=== PATIENT | female | born 1955 | race Caucasian/White ===

== ENCOUNTER → 2017-12-11 10:31 | Outpatient (CLI) | payer OTHER, SELFPAY ==
[2017-12-11 12:06] LABS: Absolute Lymphocyte Count 1.82 X10^3/ul (0.83-4.51); Absolute Neutrophil Count 4.5 X10^3/uL (2.0-7.7); Basophil# 0.02 X10^3/uL; Basophil% 0.3 % (0-1); Eosinophil# 0.09 X10^3/uL; Eosinophils% 1.3 % (0-5); Hematocrit 42.7 % (37-47); Hemoglobin 13.7 g/dl (12.0-15.0); Lymphocyte # 1.82 X10^3/ul (4.0); Lymphocyte % 25.9 % (19-41); Mean Corp Hgb Conc 32.1 g/gl (32-36); Mean Corpuscular Hgb 29.4 pg (27.0-32.0); Mean Corpuscular Volume 91.6 fL (81-99); Mean Platelet Vol. 10.8 fl (6.2-12.0); Monocyte# 0.62 X10^3/uL; Monocyte% 8.8 % (0-10); Neutrophil # 4.48 X10^3/uL (2.7-7.7); Neutrophil % 63.6 % (47-70); Platelet Count 213 K/mm3 (150-450); RBC Distribution Width CV 13.3 % (11.6-14.6); RBC Distribution Width SD 43.9 fl (35.1-43.9); Red Blood Count 4.66 M/mm3 (4.2-5.4)
[2017-12-11 12:20] LABS: POSITIVE COUNT NO; POSITIVE DIFFERENTIAL NO; POSITIVE MORPHOLOGY NO
[2017-12-11 12:40] LABS: Anion Gap 4 (5-15); BUN 19 mg/dL (7-18); BUN/Creat Ratio 23.1 RATIO (10-20); Calcium,Total 9.4 mg/dL (8.5-10.1); Chloride 105 mmol/L (98-107); Creatinine, Serum 0.82 mg/dL (0.55-1.02); EST Glomerular Filtration Rate 75 mL/min (>60); Est Glom Filt Rate - Afr Amer 90 mL/min (>60); Glucose 91 mg/dL (74-106); Sodium Level 142 mmol/L (136-145); T4 Free Direct 1.12 ng/dL (0.76-1.46); Thyroid Stim Hormone (TSH) 0.75 uIU/mL (0.358-3.74)
== END ==
PROVIDERS: Family Provider Family Medicine; PCP Family Medicine; Visit Provider Family Medicine
DX: I10 Essential (primary) hypertension (principal); R19.7 Diarrhea, unspecified; R35.0 Frequency of micturition
CPT/HCPCS: 36415; 80048; 84439; 84443; 85025

== ENCOUNTER → 2018-04-02 08:05 | Outpatient (CLI) | payer OTHER, SELFPAY | PROVIDERS: Family Provider Family Medicine; PCP Family Medicine; Visit Provider Obstetrics & Gynecology | DX: Z12.31 Encounter for screening mammogram for malignant neoplasm of breast (principal) | CPT/HCPCS: 77063; 77067 ==

== ENCOUNTER → 2019-04-01 | Outpatient (CLI) | payer OTHER, SELFPAY ==
[2019-04-01 15:22] LABS: Absolute Lymphocyte Count 1.72 X10^3/uL (0.83-4.51); Absolute Neutrophil Count 4.3 X10^3/uL (2.0-7.7); Basophil# 0.03 X10^3/uL; Basophil% 0.4 % (0-1); Eosinophil# 0.13 X10^3/uL; Eosinophils% 1.9 % (0-5); Hematocrit 42.4 % (37-47); Hemoglobin 13.3 g/dL (12.0-15.0); Lymphocyte # 1.72 X10^3/ul (4.0); Lymphocyte % 25.4 % (19-41); Mean Corp Hgb Conc 31.4 g/dL (32-36); Mean Corpuscular Hgb 29.6 pg (27.0-32.0); Mean Corpuscular Volume 94.2 fL (81-99); Mean Platelet Vol. 10.3 fl (6.2-12.0); Monocyte# 0.62 X10^3/uL; Monocyte% 9.2 % (0-10); NRBC Flagged by Analyzer 0 % (0-5); Neutrophil # 4.25 X10^3/uL (2.7-7.7); Platelet Count 270 K/mm3 (150-450); RBC Distribution Width SD 45.2 fl (35.1-43.9); White Blood Count 6.8 K/mm3 (4.4-11.0)
[2019-04-01 15:42] LABS: Anion Gap 3 (5-15); BUN 18 mg/dL (7-18); BUN/Creat Ratio 20.5 RATIO (10-20); Calcium,Total 9.6 mg/dL (8.5-10.1); Chloride 107 mmol/L (98-107); Creatinine, Serum 0.88 mg/dL (0.55-1.02); EST Glomerular Filtration Rate 69 mL/min (>60); Est Glom Filt Rate - Afr Amer 83 mL/min (>60); Glucose 92 mg/dL (74-106); Potassium 4.4 mmol/L (3.5-5.1); Sodium Level 142 mmol/L (136-145); Thyroid Stim Hormone (TSH) 0.86 uIU/mL (0.358-3.74)
== END | disposition home or self-care (01) ==
LOC: BFHLAB 11:12
PROVIDERS: Family Provider Family Medicine; PCP Family Medicine; Visit Provider Family Medicine
DX: I10 Essential (primary) hypertension (principal)
CPT/HCPCS: 36415; 80048; 84443; 85025

== ENCOUNTER → 2019-04-22 | Outpatient (CLI) | payer OTHER, SELFPAY ==
--- NOTE | 2019-04-22 07:56 | BI_ITS ---
MAMMOGRAPHY - BILATERAL SCREENING REASON FOR EXAM: Female, 64 years old. Routine annual screening examination. PERTINENT HISTORY: Non-contributory. TECHNIQUE: Digital bilateral breast waleska (3D mammographic acquisition) in the CC and MLO projections. 2-D mediolateral oblique (MLO) and craniocaudad (CC) views of both breasts were obtained. CAD: Full Field Digital Mammography with Computer Added Detection was performed. COMPARISON: Comparison is made with prior study April 02, 2018 and October 31, 2016. FINDINGS: Breast Composition: There are scattered areas of fibroglandular density. There are no dominant masses or suspicious calcifications. Stable appearance of the benign-appearing bilateral axillary lymph nodes. No other significant abnormalities are identified. There has been no significant change since the prior study. BI/SCREEN MAMM (CAD) W/WALESKA BILAT IMPRESSION: Stable bilateral screening mammogram. Yearly follow-up mammogram recommended. (A) ASSESSMENT CATEGORY: BIRADS Category 2: Benign. A letter regarding these results will be sent to the patient by the facility within 30 days. Approximately 10% of breast cancers are not detected by mammography. A normal mammogram should not delay biopsy of a clinically suspicious abnormality. [id number] Electronically Signed: Nestor Guillen, at 10:38 EDT , Service support ,
== END | disposition home or self-care (01) ==
PROVIDERS: Family Provider Family Medicine; PCP Family Medicine; Referring Provider Family Medicine; Visit Provider Family Medicine
DX: Z12.31 Encounter for screening mammogram for malignant neoplasm of breast (principal)
CPT/HCPCS: 77063; 77067

== ENCOUNTER → 2019-10-28 10:27 | Outpatient (CLI) | payer OTHER, SELFPAY ==
[2019-10-28 13:19] LABS: Anion Gap 4 (5-15); BUN 19 mg/dL (7-18); BUN/Creat Ratio 21.7 RATIO (10-20); Calcium,Total 9.8 mg/dL (8.5-10.1); Chloride 107 mmol/L (98-107); Creatinine, Serum 0.88 mg/dL (0.55-1.02); EST Glomerular Filtration Rate 69 mL/min (>60); Est Glom Filt Rate - Afr Amer 83 mL/min (>60); Glucose 91 mg/dL (74-106); Potassium 4.1 mmol/L (3.5-5.1); Sodium Level 142 mmol/L (136-145); T4 Free Direct 1.01 ng/dL (0.76-1.46); Thyroid Stim Hormone (TSH) 1.33 uIU/mL (0.358-3.74)
== END ==
PROVIDERS: PCP Family Medicine; Visit Provider Family Medicine
DX: I10 Essential (primary) hypertension (principal); R53.83 Other fatigue
CPT/HCPCS: 36415; 80048; 84439; 84443

== ENCOUNTER → 2020-10-16 09:25 | Outpatient (CLI) | payer MEDICARE, OTHER, SELFPAY ==
[2020-10-16 12:19] LABS: Absolute Lymphocyte Count 1.72 X10^3/uL (0.83-4.51); Absolute Neutrophil Count 4.6 X10^3/uL (2.0-7.7); Basophil# 0.04 X10^3/uL; Basophil% 0.6 % (0-1); Eosinophil# 0.15 X10^3/uL; Eosinophils% 2.1 % (0-5); Hemoglobin 13.2 g/dL (12.0-15.0); Lymphocyte # 1.72 X10^3/ul (4.0); Lymphocyte % 23.9 % (19-41); Mean Corpuscular Hgb 31.9 pg (27.0-32.0); Mean Corpuscular Volume 96.6 fL (81-99); Mean Platelet Vol. 10.9 fl (6.2-12.0); Monocyte# 0.64 X10^3/uL; Monocyte% 8.9 % (0-10); NRBC Flagged by Analyzer 0 % (0-5); Neutrophil # 4.63 X10^3/uL (2.7-7.7); Neutrophil % 64.2 % (47-70); Platelet Count 196 K/mm3 (150-450); RBC Distribution Width CV 13.3 % (11.6-14.6); RBC Distribution Width SD 45.6 fl (35.1-43.9); Red Blood Count 4.14 M/mm3 (4.2-5.4); White Blood Count 7.2 K/mm3 (4.4-11.0)
[2020-10-16 12:35] LABS: Anion Gap 3 (5-15); BUN 20 mg/dL (7-18); BUN/Creat Ratio 22.7 RATIO (10-20); Calcium,Total 9.6 mg/dL (8.5-10.1); Chloride 106 mmol/L (98-107); Cholesterol 223 mg/dL (200); Creatinine, Serum 0.88 mg/dL (0.55-1.02); EST Glomerular Filtration Rate 68 mL/min (>60); Est Glom Filt Rate - Afr Amer 82 mL/min (>60); Glucose 89 mg/dL (74-106); High Density Lipoprotein 68 mg/dL; Potassium 4.2 mmol/L (3.5-5.1); Sodium Level 140 mmol/L (136-145); Triglycerides 79 mg/dL; Very Low Density Lipoprotein 16 mg/dL (5-40)
== END ==
PROVIDERS: PCP Family Medicine; Visit Provider Family Medicine
DX: I10 Essential (primary) hypertension (principal)
CPT/HCPCS: 36415; 80048; 80061; 85025

== ENCOUNTER → 2021-05-24 11:53 | Outpatient (CLI) | payer MEDICARE, OTHER, SELFPAY ==
--- NOTE | 2021-05-24 11:58 | BI_ITS ---
MAMMOGRAPHY - BILATERAL SCREENING REASON FOR EXAM: Female, 66 years old. Routine annual screening examination. PERTINENT HISTORY: Non-contributory. Chronic inversion of the left nipple. TECHNIQUE: Digital bilateral breast w[place]ka (3D mammographic acquisition) in the CC and MLO projections. 2-D mediolateral oblique (MLO) and craniocaudad (CC) views of both breasts were obtained. CAD: Full Field Digital Mammography with Computer Added Detection was performed. COMPARISON: Comparison is made with prior study dated 04/22/2019 and 04/02/2008. FINDINGS: Breast Composition: There are scattered areas of fibroglandular density. There are no dominant masses or suspicious calcifications. Stable small benign appearing bilateral axillary No other significant abnormalities are identified. There has been no significant change since the prior study. BI/SCRN MAMM (CAD)W/WALESKA BILAT IMPRESSION: Stable bilateral screening mammogram. Yearly follow-up mammogram recommended. (A) ASSESSMENT CATEGORY: BIRADS Category 2: Benign. A letter regarding these results will be sent to the patient by the facility within 30 days. Approximately 10% of breast cancers are not detected by mammography. A normal mammogram should not delay biopsy of a clinically suspicious abnormality. [id number] Electronically Signed: Nestor Guillen MD at 13:35 EDT , Service support ,
== END ==
PROVIDERS: PCP Family Medicine; Referring Provider Family Medicine; Visit Provider Family Medicine
DX: Z12.31 Encounter for screening mammogram for malignant neoplasm of breast (principal)
CPT/HCPCS: 77063; 77067

== ENCOUNTER 2021-09-15 10:55 | Outpatient (CLI) | payer MEDICARE, OTHER, SELFPAY ==
--- NOTE | 2021-09-15 11:03 | BD_ITS ---
STUDY: DUAL ENERGY X-RAY ABSORPTIOMETRY / DXA REASON FOR EXAM: Female, 66 years old. M85.89. Patient is postmenopausal. TECHNIQUE: Bone Mineral Density (BMD) measurements of lumbar spine and left hip were obtained. COMPARISON: Comparison is made with prior study to 04/21/2011. FINDINGS: Lumbar Spine (L1-L4): g/cm2 (1.024) / T-score (0.1) / Z-score (1.9) Findings are suggestive of normal bone density with a low fracture risk. Left Femur Total: g/cm2 (0.803) / T-score (-1.1) / Z-score (0.2) Left Femoral Neck: g/cm2 (0.617) / T-score (-2.1) / Z-score (-0.4) The T-Scores on the most recent prior examination were: Lumbar Spine (L1-L4): There has been worsening of bone density since the previous examination. Left Femur Total: which represents a worsening of 9.6%. BD/Dexa Bone Density Study IMPRESSION: The patient is considered osteopenic as outlined below according to World [place] Organization (WHO) criteria with a moderate fracture risk. There has been worsening of bone density since the previous examination. Reference Information: The T-score is the number of standard deviations above or below the standard which is normal for young adults at their peak bone mineral density. The World Health Organization (WHO) interprets the T-scores as follows: Above -1 Normal bone density Between -1 and -2.5 Osteopenia Equal to / or below -2.5 Osteoporosis As a practical clinical guideline, osteopenia may be graded as follows: Mild -1 through -1.5 Moderate -1.6 through -2.0 Severe -2.1 through -2.4 The Z-score is the number of standard deviations above or below age-matched controls. A Z-score of less than -1.5 would be considered abnormal. References: 1. NIH Osteoporosis and Related Bone Diseases www osteo.org 2. International Society for Clinical Densitometry www iscd.org 3. National Osteoporosis Foundation www nof.org Electronically Signed: Nestor Guillen MD at 10:12 EST ,
== END 2021-09-15 23:59 | disposition short-term general hospital (02) ==
PROVIDERS: PCP Family Medicine; Referring Provider Student in an Organized Health Care Education/Training Program; Visit Provider Student in an Organized Health Care Education/Training Program
DX: M85.89 Other specified disorders of bone density and structure, multiple sites (principal)
CPT/HCPCS: 77080

== ENCOUNTER → 2022-09-14 | Outpatient (CLI) | payer MEDICARE, OTHER, SELFPAY ==
[2022-09-14 18:00] LABS: Absolute Lymphocyte Count 1.94 X10^3/uL (0.83-4.51); Absolute Neutrophil Count 4.8 X10^3/uL (2.0-7.7); Basophil# 0.04 X10^3/uL; Basophil% 0.5 % (0-1); Eosinophil# 0.11 X10^3/uL; Eosinophils% 1.5 % (0-5); Hematocrit 40.9 % (37-47); Lymphocyte # 1.94 X10^3/ul (0.83-4.51); Lymphocyte % 25.6 % (19-41); Mean Corp Hgb Conc 31.8 g/dL (32-36); Mean Corpuscular Volume 94.2 fL (81-99); Mean Platelet Vol. 10.9 fl (6.2-12.0); Monocyte# 0.62 X10^3/uL; Monocyte% 8.2 % (0-10); NRBC Flagged by Analyzer 0 % (0-5); Neutrophil # 4.84 X10^3/uL (2.7-7.7); Neutrophil % 63.8 % (47-70); Platelet Count 245 K/mm3 (150-450); Red Blood Count 4.34 M/mm3 (4.2-5.4); White Blood Count 7.6 K/mm3 (4.4-11.0)
[2022-09-14 18:32] LABS: AST(SGOT) 21 U/L (15-37); Alanine Aminotransfer ALT/SGPT 16 U/L (13-56); Albumin, Serum 3.5 g/dL (3.2-5.0); Alkaline Phosphatase 53 U/L (45-117); Anion Gap 8 (5-15); BUN 20 mg/dL (7-18); BUN/Creat Ratio 21.8 RATIO (10-20); Calcium,Total 9.9 mg/dL (8.5-10.1); Chloride 102 mmol/L (98-107); Creatinine, Serum 0.92 mg/dL (0.55-1.02); EST Glomerular Filtration Rate 65 mL/min (>60); Est Glom Filt Rate - Afr Amer 78 mL/min (>60); Globulin 3.4 g/dL (2.2-4.2); Glucose 99 mg/dL (74-106); Potassium 4.1 mmol/L (3.5-5.1); Protein, Total 6.9 g/dL (6.4-8.2); Sodium Level 139 mmol/L (136-145)
[2022-09-14 22:46] LABS: Xtra Tube EP Lab EXTRA TUBE
== END | disposition home or self-care (01) ==
LOC: BFHLAB 14:39
PROVIDERS: PCP Family Medicine; Visit Provider Family Medicine
DX: I10 Essential (primary) hypertension (principal)
CPT/HCPCS: 36415; 80053; 85025

== ENCOUNTER → 2023-02-20 | Outpatient (CLI) | payer MEDICARE, OTHER, SELFPAY ==
[2023-02-20 10:13] LABS: Absolute Lymphocyte Count 1.39 X10^3/uL (0.83-4.51); Basophil# 0.04 X10^3/uL; Basophil% 0.7 % (0-1); Eosinophils% 1.6 % (0-5); Hematocrit 40.2 % (37-47); Hemoglobin 13.2 g/dL (12.0-15.0); Lymphocyte # 1.39 X10^3/ul (0.83-4.51); Lymphocyte % 22.7 % (19-41); Mean Corp Hgb Conc 32.8 g/dL (32-36); Mean Corpuscular Hgb 30.2 pg (27.0-32.0); Mean Platelet Vol. 10.4 fl (6.2-12.0); Monocyte# 0.56 X10^3/uL; Monocyte% 9.2 % (0-10); NRBC Flagged by Analyzer 0 % (0-5); Neutrophil % 65.3 % (47-70); Platelet Count 212 K/mm3 (150-450); RBC Distribution Width CV 12.4 % (11.6-14.6); Red Blood Count 4.37 M/mm3 (4.2-5.4); White Blood Count 6.1 K/mm3 (4.4-11.0)
[2023-02-20 10:52] LABS: AST(SGOT) 25 U/L (15-37); Alanine Aminotransfer ALT/SGPT 21 U/L (13-56); Albumin, Serum 3.5 g/dL (3.2-5.0); Alkaline Phosphatase 58 U/L (45-117); Anion Gap 3 (5-15); BUN 25 mg/dL (7-18); BUN/Creat Ratio 29.7 RATIO (10-20); Calcium,Total 9.5 mg/dL (8.5-10.1); Chloride 105 mmol/L (98-107); Cholesterol 192 mg/dL (200); Creatinine, Serum 0.84 mg/dL (0.55-1.02); EST Glomerular Filtration Rate 71 mL/min (>60); Est Glom Filt Rate - Afr Amer 86 mL/min (>60); Globulin 3.4 g/dL (2.2-4.2); Glucose 84 mg/dL (74-106); High Density Lipoprotein 75 mg/dL; Potassium 3.7 mmol/L (3.5-5.1); Protein, Total 6.9 g/dL (6.4-8.2); Sodium Level 138 mmol/L (136-145); Triglycerides 52 mg/dL; Very Low Density Lipoprotein 10 mg/dL (5-40)
== END | disposition home or self-care (01) ==
LOC: MFPLAB 09:06
PROVIDERS: PCP Family Medicine; Visit Provider Family Medicine
DX: R79.89 Other specified abnormal findings of blood chemistry (principal); E78.5 Hyperlipidemia, unspecified; I10 Essential (primary) hypertension
CPT/HCPCS: 36415; 80053; 80061; 85025

== ENCOUNTER → 2024-02-29 | Outpatient (CLI) | payer MEDICARE, OTHER, SELFPAY ==
[2024-02-29 12:23] LABS: Absolute Lymphocyte Count 1.52 X10^3/uL (0.83-4.51); Absolute Neutrophil Count 4.3 X10^3/uL (2.0-7.7); Basophil# 0.04 X10^3/uL; Basophil% 0.6 % (0-1); Eosinophil# 0.17 X10^3/uL; Eosinophils% 2.6 % (0-5); Hematocrit 40.1 % (37-47); Hemoglobin 12.9 g/dL (12.0-15.0); Lymphocyte # 1.52 X10^3/ul (0.83-4.51); Lymphocyte % 22.9 % (19-41); Mean Corp Hgb Conc 32.2 g/dL (32-36); Mean Corpuscular Hgb 30.3 pg (27.0-32.0); Mean Corpuscular Volume 94.1 fL (81-99); Mean Platelet Vol. 10.7 fl (6.2-12.0); Monocyte# 0.55 X10^3/uL; Monocyte% 8.3 % (0-10); NRBC Flagged by Analyzer 0 % (0-5); Neutrophil # 4.32 X10^3/uL (2.7-7.7); Neutrophil % 65.1 % (47-70); Platelet Count 202 K/mm3 (150-450); RBC Distribution Width SD 44.9 fl (35.1-43.9); Red Blood Count 4.26 M/mm3 (4.2-5.4); White Blood Count 6.6 K/mm3 (4.4-11.0)
[2024-02-29 12:49] LABS: Vitamin D,25 Hydroxy 46.4 ng/mL
[2024-02-29 12:57] LABS: AST(SGOT) 19 U/L (15-37); Alanine Aminotransfer ALT/SGPT 17 U/L (13-56); Albumin, Serum 3.5 g/dL (3.2-5.0); Alkaline Phosphatase 61 U/L (45-117); Anion Gap 6 (5-15); BUN 24 mg/dL (7-18); BUN/Creat Ratio 28.3 RATIO (10-20); Calcium,Total 9.6 mg/dL (8.5-10.1); Chloride 104 mmol/L (98-107); Cholesterol 199 mg/dL (200); Creatinine, Serum 0.85 mg/dL (0.55-1.02); EST Glomerular Filtration Rate 71 mL/min (>60); Est Glom Filt Rate - Afr Amer 85 mL/min (>60); Globulin 3.6 g/dL (2.2-4.2); Glucose 86 mg/dL (74-106); High Density Lipoprotein 58 mg/dL; Protein, Total 7.1 g/dL (6.4-8.2); Sodium Level 138 mmol/L (136-145); Triglycerides 61 mg/dL; Very Low Density Lipoprotein 12 mg/dL (5-40)
== END | disposition home or self-care (01) ==
LOC: MFPLAB 09:36
PROVIDERS: PCP Family Medicine; Visit Provider Family Medicine
DX: I10 Essential (primary) hypertension (principal); Z78.0 Asymptomatic menopausal state
CPT/HCPCS: 36415; 80053; 80061; 82306; 85025

== ENCOUNTER → 2024-03-14 | Outpatient (CLI) | payer MEDICARE, OTHER, SELFPAY ==
--- NOTE | 2024-03-14 07:15 | BI_ITS ---
MAMMOGRAPHY - BILATERAL SCREENING REASON FOR EXAM: Female, 68 years old. Routine annual screening examination. PERTINENT HISTORY: Non-contributory. Chronic inversion of the left nipple complex. TECHNIQUE: Digital bilateral breast w[place] (3D mammographic acquisition) in the CC and MLO projections. 2-D mediolateral oblique (MLO) and craniocaudad (CC) views of both breasts were obtained. CAD: Full Field Digital Mammography with Computer Added Detection was performed. COMPARISON: Comparison is made with prior study May 24, 2021 April 22, 2019. FINDINGS: Breast Composition: There are scattered areas of fibroglandular density. There are no dominant masses or suspicious calcifications. The 1 cm density in the deep midportion of the right breast as seen on the mediolateral oblique view. This may represent fibroglandular tissue. The patient will be recalled for additional views including 90 degree lateral and compression spot views. No other significant abnormalities are identified. BI/SCRN MAMM (CAD)W/WALESKA BILAT IMPRESSION: Density in the deep midportion of the right breast as described. The patient will be recalled for additional views including 90 degree lateral and compression spot views. Recall Side: Right Breast ASSESSMENT CATEGORY: BIRADS Category 2: Benign. A letter regarding these results will be sent to the patient by the facility within 30 days. Approximately 10% of breast cancers are not detected by mammography. A normal mammogram should not delay biopsy of a clinically suspicious abnormality. [id number] Electronically Signed: Nestor Guillen MD at 9:25 EDT ,
== END | disposition home or self-care (01) ==
PROVIDERS: PCP Family Medicine; Referring Provider Family Medicine; Visit Provider Family Medicine
DX: Z12.31 Encounter for screening mammogram for malignant neoplasm of breast (principal)
CPT/HCPCS: 77063; 77067

== ENCOUNTER → 2024-03-26 | Outpatient (CLI) | payer MEDICARE, OTHER, SELFPAY ==
--- NOTE | 2024-03-26 09:32 | BI_ITS ---
MAMMOGRAPHY - UNILATERAL DIAGNOSTIC: RIGHT BREAST REASON FOR EXAM: Female, 68 years old. Abnormal screening mammogram. PERTINENT HISTORY: Non-contributory. TECHNIQUE: Compression spot views of the right breast in the mediolateral oblique and craniocaudal projections were obtained. CAD: Full Field Digital Mammography with Computer Added Detection was performed. COMPARISON: Comparison is made with prior study March 14, 2024. FINDINGS: Breast Composition: There are scattered areas of fibroglandular density. Persistent appearance on the mediolateral oblique view. No definite visualization of the cranial cavity that view. Correlation with ultrasound recommended. No other significant abnormalities are identified. BI/DIAG MAMM W/CAD, UNILAT IMPRESSION: The nodular density seen on the mediolateral oblique view is not well visualized on the craniocaudad view. Correlation with ultrasound is recommended. ASSESSMENT CATEGORY: BIRADS Category 0: Incomplete. Need additional imaging evaluation. A letter regarding these results will be sent to the patient by the facility within 30 days. Approximately 10% of breast cancers are not detected by mammography. A normal mammogram should not delay biopsy of a clinically suspicious abnormality. Electronically Signed: Nestor Guillen MD at 10:14 EDT ,
--- NOTE | 2024-03-26 09:32 | US_ITS ---
STUDY: ULTRASOUND BREAST - RIGHT REASON FOR EXAM: Female, 68 years old. Abnormal screening mammogram. TECHNIQUE: Axial and longitudinal images of the RIGHT breast were performed with a high resolution ultrasound transducer. # OF IMAGES: 26 COMPARISON: Comparison is made with prior mammogram done earlier in the day as well as March 14, 2024. FINDINGS: RIGHT Breast: The mammographic abnormality corresponds to a cluster of small cysts and dilated ducts. This measures 5 mm x 5 mm x 3 mm. This is at the 10:00 position of the breast at 5 cm from the nipple. US/Breast Limited Unilateral IMPRESSION: The mammographic abnormality corresponds to a cluster of small cysts and dilated ducts at the 10:00 position of the breast at 5 cm from the nipple. ASSESSMENT CATEGORY: BIRADS Category 2: Benign. A letter regarding these results will be sent to the patient by the facility within 30 days. Electronically Signed: Nestor Guillen MD at 14:40 EDT ,
== END | disposition home or self-care (01) ==
LOC: OPBI 09:30
PROVIDERS: PCP Family Medicine; Referring Provider Family Medicine; Visit Provider Family Medicine
DX: R92.8 Other abnormal and inconclusive findings on diagnostic imaging of breast (principal)
CPT/HCPCS: 76642; 77065

== ENCOUNTER → 2025-02-26 | Outpatient (CLI) | payer MEDICARE, OTHER, SELFPAY ==
[2025-02-26 10:49] LABS: Hematocrit 37.7 % (37-47); Hemoglobin 12.6 g/dL (12.0-15.0); Immature Granulocytes Count 0.020 X10^3/uL (0.0-0.0); Mean Corp Hgb Conc 33.4 g/dL (32-36); Mean Corpuscular Volume 91.3 fL (81-99); Mean Platelet Vol. 10.6 fl (6.2-12.0); NRBC Flagged by Analyzer 0 % (0-5); Platelet Count 209 K/mm3 (150-450); RBC Distribution Width CV 12.8 % (11.6-14.6); RBC Distribution Width SD 42.5 fl (35.1-43.9); Red Blood Count 4.13 M/mm3 (4.2-5.4); White Blood Count 7.6 K/mm3 (4.4-11.0)
[2025-02-26 12:21] LABS: AST(SGOT) 21 U/L (<=31); Alanine Aminotransfer ALT/SGPT 10 U/L (<=34); Albumin, Serum 3.7 g/dL (3.4-4.8); Alkaline Phosphatase 64 U/L (35-104); Anion Gap 9 (5-15); BUN 17 mg/dL (4-19); BUN/Creat Ratio 20.0 RATIO (10-20); Calcium,Total 9.5 mg/dL (7.6-11.0); Carbon Dioxide 26.2 mmol/L (21.0-32.0); Chloride 105 mmol/L (98-108); Cholesterol 173 mg/dL (<=200); Globulin 2.6 g/dL (2.2-4.2); Glucose 92 mg/dL (70-99); Low Density Lipoprotein Calc. 98 mg/dL; Potassium 3.9 mmol/L (3.3-5.1); Triglycerides 76 mg/dL; Very Low Density Lipoprotein 15 mg/dL (5-40); cholesterol:hdl ratio screen 2.89
== END | disposition home or self-care (01) ==
LOC: MFPLAB 09:15
PROVIDERS: PCP Family Medicine; Referring Provider Family Medicine; Visit Provider Family Medicine
DX: I10 Essential (primary) hypertension (principal)
CPT/HCPCS: 36415; 80053; 80061; 85025

== ENCOUNTER → 2025-04-21 | Outpatient (CLI) | payer MEDICARE, OTHER, SELFPAY ==
--- NOTE | 2025-04-21 10:15 | BI_ITS ---
EXAM: SCRN MAMM (CAD)W/WALESKA BILAT DATE: 04/21/2025 CLINICAL HISTORY: F, Age 70 y/o , ANNUAL SCREENING TECHNIQUE: Procedure Code: [id number] Modality: MG Procedure: SCRN MAMM (CAD)W/WALESKA BILAT COMPARISON: Prior exam(s) dated 03/26/2024, 03/14/2024. FINDINGS: TISSUE DENSITY: There are scattered areas of fibroglandular density. Bilateral Breast Mammographic Findings: There are no suspicious masses, suspicious clustered microcalcifications, architectural distortion or secondary signs of malignancy identified in either breast. There has been no overall interval significant change in either breast to suggest malignancy in comparison to the prior exam. Benign vascular calcifications and round calcifications are seen in both breasts. A stable nodular masslike density is seen in the superior, far posterior aspect of the right breast. BI/SCRN MAMM (CAD)W/WALESKA BILAT IMPRESSION: Benign screening mammogram. OVERALL FINAL ASSESSMENT BI-RADS 2: BENIGN RECOMMENDATION: Routine annual follow-up in 1 Year A letter with findings and recommendations will be mailed to the patient. Reading Location: [id number]
--- OUTSIDE RECORDS SUMMARY | 2025-04-21 17:41 | XMS RPT_ITS | CCD ---
Author Organization [facility] Care Team Providers Care Crime Data Specialist Name Role Phone Cornelio Rhodes MD Primary Care Provider [phone] Meagan MARIA, Cornelio Referring Provider [phone] Roof SHEARING MACHINE FEEDER-Dez Plata Attending Provider Cornelio Rhodes MD Attending Provider MeaganCornelio ortiz Attending Unavailable Meagan, Chalon Primary Care Unavailable Meagan, Ernestinaon Referring Unavailable Meagan, Cornelio Referring Unavailable Meagan, Cornelio Attending Unavailable Meagan, Ernestinaon Primary Care Unavailable Meagan, Cornelio Attending Unavailable Meagan, Chalon Primary Care Unavailable Meagan, Chalon Primary Care Unavailable Roof SHEARING MACHINE FEEDER, Dez Oliver Attending Unavailable Meagan, Cornelio Referring Unavailable Medications Current Medications Medication Drug Class(es) Dates Sig (Normalized) Sig (Original) hydroCHLOROthiazide 12.5 mg / losartan potassium 50 mg oral tablet (2 sources) Thiazide Diuretic, Angiotensin 2 Receptor Peyman Start: 07-12-2023 Losartan-Hydroch lorothiazide 50-12.5 mg tablet Active {tbl} PO July 12, 2023 1:00am Semaglutide 1 mg/0.2 mL syringe (2 sources) Start: 02-02-2025 Semaglutide 1 mg/0.2 mL syringe Active mg SC February 02, 2025 12:00am 20 units weekly Completed/Discontinued Medications Medication Drug Class(es) Dates Sig (Normalized) Sig (Original) amoxicillin 875 mg / clavulanate 125 mg oral tablet (2 sources) Penicillin-class Antibacterial Start: 07-12-2023 End: 07-22-2023 Amoxicillin-Pot Clavulanate 875-125 mg tablet Discontinued 1 {tbl} PO Q12H 20 10 0 July 12, 2023 1:00am July 21, 2023 1:00am July 22, 2023 1:24am Acute sinusitis, unspecified cephalexin 500 mg oral tablet (2 sources) Cephalosporin Antibacterial Start: 02-02-2025 End: 02-12-2025 take 1 tablet by mouth three times daily Cephalexin 500 mg tablet Discontinued 500 mg PO THREE TIMES A DAY 30 10 0 February 02, 2025 12:00am February 11, 2025 12:00am February 12, 2025 12:05am Problems Problem Classification Problem Date Documented Da te Episodic/Chronic Essential hypertension (2 sources) Essential (primary) hypertension; Translations: [Essential (primary) hypertension] Onset: 02-24-2025 Chronic Other injuries and conditions due to external causes (4 sources) Puncture wound - injury; Translations: [Other injury of unspecified body region, initial encounter] 02-02-2025 Episodic Other screening for suspected conditions (not mental disorders or infectious disease) (1 source) Encounter for screening mammogram for malignant neoplasm of breast; Translations: [Encounter for screening mammogram for malignant neoplasm of breast] Onset: 04-16-2025 Episodic Other upper respiratory infections (2 sources) Acute sinusitis; Translations: [Acute sinusitis, unspecified] 07-12-2023 Episodic Results Test Name Value Interpretation Reference Range Facility Absolute lymphocyte countOrd ered By: Cornelio Rhodes on 02-26-2025 Lymphocytes Auto (Unsp spec) [#/Vol] 1.79 10*3/uL 0.83-4.51 [facility] Absolute neutrophil countOrd ered By: Cornelio Rhodes on 02-26-2025 Neutrophils (Bld) [#/Vol] 5.0 10*3/uL 2.0-7.7 [facility] Anion gap in Serum or Plasma Ordered By: Cornelio Rhodes on 02-26-2025 Anion gap [Moles/Vol] 9 mmol/L 5-15 [facility] Automated lymphocyte count a s percentage of total leukocytesOrdered By: Cornelio Rhodes on 02-26-2025 Lymphocytes/100 WBC Auto (Unsp spec) 23.5 % 19-41 [facility] BUN/creatinine ratioOrdered By: Cornelio Rhodes on 02-26-2025 Urea nitrogen/Creatinine [Mass ratio] 20.0 mg/mg 10-20 [facility] Basophil percentageOrdered B y: Cornelio Rhodes on 02-26-2025 Basophils/100 WBC (Bld) 0.3 % 0-1 [facility] Bilirubin, totalOrdered By: Cornelio Rhodes on 02-26-2025 Bilirubin [Mass/Vol] 0.54 mg/dL 0.00-1.30 [facility] CBC W/Diff, Automatedon 02-11 Absolute Lymph 1.79 X10 3/uL Normal 0.83-4.51 [facility] Comment on above: Order Comment: Order Date: 08/29/24 Order Info: [id number] - CBCD Performed By: #### L 500.4050, L100.0100, L500.4100 #### [facility] [address] [place], [address] Absolute Neut 5.0 X10 3/uL Normal 2.0-7.7 [facility] Comment on above: Order Comment: Order Date: 08/29/24 Order Info: [id number] - CBCD Performed By: #### L 500.4050, L100.0100, L500.4100 #### [facility] [address] [place], [address] Basophils/100 WBC (Bld) 0.3 % Normal 0-1 [facility] Comment on above: Order Comment: Order Date: 08/29/24 Order Info: [id number] - CBCD Performed By: #### L 500.4050, L100.0100, L500.4100 #### [facility] [address] [place], [address] Eosinophils/100 WBC (Bld) 2.9 % Normal 0-5 [facility] Comment on above: Order Comment: Order Date: 08/29/24 Order Info: [id number] - CBCD Performed By: #### L 500.4050, L100.0100, L500.4100 #### [facility] [address] [place], [address] Erythrocyte distribution width (RBC) [Ratio] 12.8 % Normal 11.6-14.6 [facility] Comment on above: Order Comment: Order Date: 08/29/24 Order Info: [id number] - CBCD Performed By: #### L 500.4050, L100.0100, L500.4100 #### [facility] [address] [place], [address] Hematocrit (Bld) [Volume fraction] 37.7 % Normal 37-47 [facility] Comment on above: Order Comment: Order Date: 08/29/24 Order Info: [id number] - CBCD Performed By: #### L 500.4050, L100.0100, L500.4100 #### [facility] [address] [place], [address] Hemoglobin (Bld) [Mass/Vol] 12.6 g/dL Normal 12.0-15.0 [facility] Comment on above: Order Comment: Order Date: 08/29/24 Order Info: [id number]- - CBCD Performed By: #### L 500.4050, L100.0100, L500.4100 #### [facility] [address] [place], [address] IG% 0.300 Normal 0.0-0.9 [facility] Comment on above: Order Comment: Order Date: 08/29/24 Order Info: [id number] - CBCD Result Comment: IG% - Immature Granulocytes (promyelocytes, myelocytes and metamyelocytes) > 1% indicates that a LEFT SHIFT is Present. Performed By: #### L 500.4050, L100.0100, L500.4100 #### [facility] [address] [place], [address] Lymphocytes/100 WBC (Bld) 23.5 % Normal 19-41 [facility] Comment on above: Order Comment: Order Date: 08/29/24 Order Info: [id number] - CBCD Performed By: #### L 500.4050, L100.0100, L500.4100 #### [facility] [address] [place], [address] MCH (RBC) [Entitic mass] 30.5 pg Normal 27.0-32.0 [facility] Comment on above: Order Comment: Order Date: 08/29/24 Order Info: [id number] - CBCD Performed By: #### L 500.4050, L100.0100, L500.4100 #### [facility] [address] [place], [address] MCHC (RBC) [Mass/Vol] 33.4 g/dL Normal 32-36 [facility] Comment on above: Order Comment: Order Date: 08/29/24 Order Info: [id number] - CBCD Performed By: #### L 500.4050, L100.0100, L500.4100 #### [facility] [address] [place], [address] MCV (RBC) [Entitic vol] 91.3 fL Normal 81-99 [facility] Comment on above: Order Comment: Order Date: 08/29/24 Order Info: [id number] - CBCD Performed By: #### L 500.4050, L100.0100, L500.4100 #### [facility] [address] [place], [address] Monocytes/100 WBC (Bld) 7.7 % Normal 0-10 [facility] Comment on above: Order Comment: Order Date: 08/29/24 Order Info: [id number] - CBCD Performed By: #### L 500.4050, L100.0100, L500.4100 #### [facility] [address] [place], [address] Neutrophils/100 WBC (Bld) 65.3 % Normal 47-70 [facility] Comment on above: Order Comment: Order Date: 08/29/24 Order Info: [id number] - CBCD Performed By: #### L 500.4050, L100.0100, L500.4100 #### [facility] [address] [place], [address] Nucleated RBC (Bld) [#/Vol] 0 10*3/uL Normal 0-5 [facility] Comment on above: Order Comment: Order Date: 08/29/24 Order Info: [id number] - CBCD Performed By: #### L 500.4050, L100.0100, L500.4100 #### [facility] [address] [place], [address] Platelet mean volume (Bld) [Entitic vol] 10.6 fL Normal 6.2-12.0 [facility] Comment on above: Order Comment: Order Date: 08/29/24 Order Info: [id number] - CBCD Performed By: #### L 500.4050, L100.0100, L500.4100 #### [facility] [address] [place], [address] Platelets (Bld) [#/Vol] 209 10*3/uL Normal 150-450 [facility] Comment on above: Order Comment: Order Date: 08/29/24 Order Info: [id number] - CBCD Performed By: #### L 500.4050, L100.0100, L500.4100 #### [facility] [address] [place], [address] RBC (Bld) [#/Vol] 4.13 10*6/uL Low 4.2-5.4 [facility] Comment on above: Order Comment: Order Date: 08/29/24 Order Info: [id number] - CBCD Performed By: #### L 500.4050, L100.0100, L500.4100 #### [facility] [address] [place], [address] RDW SD 42.5 fl Normal 35.1-43.9 [facility] Comment on above: Order Comment: Order Date: 08/29/24 Order Info: [id number] - CBCD Performed By: #### L 500.4050, L100.0100, L500.4100 #### [facility] [address] [place], [address] WBC (Bld) [#/Vol] 7.6 10*3/uL Normal 4.4-11.0 [facility] Comment on above: Order Comment: Order Date: 08/29/24 Order Info: [id number] - CBCD Performed By: #### L 500.4050, L100.0100, L500.4100 #### [facility] [address] [place], [address] Calculated very low density lipoprotein (VLDL) cholesterol measurementOrdered By: Cornelio Rhodes on 02-26-2025 Calculated very low density lipoprotein (VLDL) cholesterol measurement 15 mg/dL 5-40 [facility] Carbon dioxide, total [Moles /volume] in Central venous bloodOrdered By: Cornelio Rhodes on 02-26-2025 CO2 [Moles/Vol] 26.2 mmol/L 21.0-32.0 [facility] Chloride assayOrdered By: Horace Rhodes on 02-26-2025 Chloride [Moles/Vol] 105 mmol/L 98-108 [facility] Comprehensive Metabolic Prof ilon 02-26-2025 Albumin [Mass/Vol] 3.7 g/dL Normal 3.4-4.8 [facility] Comment on above: Order Comment: Order Date: 08/29/24 Order Info: [id number] - CMP Order Info: [id number] - LIPID Performed By: #### L 500.4050, L100.0100, L500.4100 #### [facility] [address] [place], [address] Albumin/Globulin [Mass ratio] 1.4 {ratio} Normal 0.9-2.4 [facility] Comment on above: Order Comment: Order Date: 08/29/24 Order Info: [id number] - CMP Order Info: [id number] - LIPID Performed By: #### L 500.4050, L100.0100, L500.4100 #### [facility] [address] [place], [address] ALK PHOS 64 U/L Normal 35-104 [facility] Comment on above: Order Comment: Order Date: 08/29/24 Order Info: [id number] - CMP Order Info: [id number] - LIPID Performed By: #### L 500.4050, L100.0100, L500.4100 #### [facility] [address] [place], [address] ALT [Catalytic activity/Vol] 10 U/L Normal <=34 [facility] Comment on above: Order Comment: Order Date: 08/29/24 Order Info: [id number]- - CMP Order Info: [id number] - LIPID Performed By: #### L 500.4050, L100.0100, L500.4100 #### [facility] [address] [place], [address] AST [Catalytic activity/Vol] 21 U/L Normal <=31 [facility] Comment on above: Order Comment: Order Date: 08/29/24 Order Info: [id number] - CMP Order Info: [id number] - LIPID Performed By: #### L 500.4050, L100.0100, L500.4100 #### [facility] [address] [place], [address] Bilirubin [Mass/Vol] 0.54 mg/dL Normal 0.00-1.30 [facility] Comment on above: Order Comment: Order Date: 08/29/24 Order Info: [id number] - CMP Order Info: [id number] - LIPID Performed By: #### L 500.4050, L100.0100, L500.4100 #### [facility] [address] [place], [address] BUN/CRE 20.0 RATIO Normal 10-20 [facility] Comment on above: Order Comment: Order Date: 08/29/24 Order Info: [id number] - CMP Order Info: [id number] - LIPID Performed By: #### L 500.4050, L100.0100, L500.4100 #### [facility] [address] [place], [address] Calcium [Mass/Vol] 9.5 mg/dL Normal 7.6-11.0 [facility] Comment on above: Order Comment: Order Date: 08/29/24 Order Info: [id number] - CMP Order Info: [id number] - LIPID Performed By: #### L 500.4050, L100.0100, L500.4100 #### [facility] [address] [place], [address] Chloride [Moles/Vol] 105 mmol/L Normal 98-108 [facility] Comment on above: Order Comment: Order Date: 08/29/24 Order Info: [id number] - CMP Order Info: [id number] - LIPID Performed By: #### L 500.4050, L100.0100, L500.4100 #### [facility] [address] [place], [address] CO2 [Moles/Vol] 26.2 mmol/L Normal 21.0-32.0 [facility] Comment on above: Order Comment: Order Date: 08/29/24 Order Info: [id number] - CMP Order Info: [id number] - LIPID Performed By: #### L 500.4050, L100.0100, L500.4100 #### [facility] [address] [place], [address] Creatinine [Mass/Vol] 0.86 mg/dL Normal 0.70-1.20 [facility] Comment on above: Order Comment: Order Date: 08/29/24 Order Info: [id number] - CMP Order Info: [id number] - LIPID Performed By: #### L 500.4050, L100.0100, L500.4100 #### [facility] [address] [place], [address] GAP 9 Normal 5-15 [facility] Comment on above: Order Comment: Order Date: 08/29/24 Order Info: [id number] - CMP Order Info: [id number] - LIPID Performed By: #### L 500.4050, L100.0100, L500.4100 #### [facility] [address] [place], [address] GFR/1.73 sq M.predicted among non-blacks MDRD (S/P/Bld) [Vol rate/Area] 73 mL/min/{1.73_m2} Normal >60 [facility] Comment on above: Order Comment: Order Date: 08/29/24 Order Info: [id number] - CMP Order Info: [id number] - LIPID Result Comment: mL/m in/1.73m2 CKD-EPI Creatinine Equation (2020) Performed By: #### L 500.4050, L100.0100, L500.4100 #### [facility] [address] [place], [address] Globulin (S) [Mass/Vol] 2.6 g/dL Normal 2.2-4.2 [facility] Comment on above: Order Comment: Order Date: 08/29/24 Order Info: [id number] - CMP Order Info: [id number] - LIPID Performed By: #### L 500.4050, L100.0100, L500.4100 #### [facility] [address] [place], [address] Glucose [Mass/Vol] 92 mg/dL Normal 70-99 [facility] Comment on above: Order Comment: Order Date: 08/29/24 Order Info: [id number] - CMP Order Info: [id number] - LIPID Performed By: #### L 500.4050, L100.0100, L500.4100 #### [facility] [address] [place], [address] Potassium [Moles/Vol] 3.9 mmol/L Normal 3.3-5.1 [facility] Comment on above: Order Comment: Order Date: 08/29/24 Order Info: [id number] - CMP Order Info: [id number] - LIPID Performed By: #### L 500.4050, L100.0100, L500.4100 #### [facility] [address] [place], [address] Sodium [Moles/Vol] 139 mmol/L Normal 133-145 [facility] Comment on above: Order Comment: Order Date: 08/29/24 Order Info: [id number] - CMP Order Info: [id number] - LIPID Performed By: #### L 500.4050, L100.0100, L500.4100 #### [facility] [address] [place], [address] T PROT 6.3 g/dL Normal 5.9-8.4 [facility] Comment on above: Order Comment: Order Date: 08/29/24 Order Info: [id number] - CMP Order Info: [id number] - LIPID Performed By: #### L 500.4050, L100.0100, L500.4100 #### [facility] [address] [place], [address] Urea nitrogen [Mass/Vol] 17 mg/dL Normal 4-19 [facility] Comment on above: Order Comment: Order Date: 08/29/24 Order Info: [id number] - CMP Order Info: [id number] - LIPID Performed By: #### L 500.4050, L100.0100, L500.4100 #### [facility] [address] [place], [address] Eosinophil percentageOrdered By: Cornelio Rhodes on 02-26-2025 Eosinophils/100 WBC (Bld) 2.9 % 0-5 [facility] Erythrocyte distribution wid th ratioOrdered By: Cornelio Rhodes on 02-26-2025 Erythrocyte distribution width (RBC) [Ratio] 12.8 % 11.6-14.6 [facility] Erythrocyte distribution wid th standard deviationOrdered By: Cornelio Rhodes on 02-26-2025 Erythrocyte distribution width (RBC) [Ratio] 42.5 fl 35.1-43.9 [facility] Glomerular filtration rate ( GFR) estimation/1.73 sq m using serum, plasma, or whole bOrdered By: Cornelio Rhodes on 02-26-2025 GFR/1.73 sq M.predicted among non-blacks MDRD (S/P/Bld) [Vol rate/Area] 73 mL/min/{1.73_m2} >60 [facility] Comment on above: mL/min/1.73m2 CKD-EP I Creatinine Equation (2020) Hematocrit Auto (Bld) [Volum e fraction]Ordered By: Cornelio Rhodes on 02-26-2025 Hematocrit (Bld) [Volume fraction] 37.7 % 37-47 [facility] Hemoglobin measurementOrdere d By: Cornelio Rhodes on 02-26-2025 Hemoglobin (Bld) [Mass/Vol] 12.6 g/dL 12.0-15.0 [facility] Immature granulocytes/100 WB C Auto (Bld)Ordered By: Cornelio Rhodes on 02-26-2025 Immature granulocytes/100 WBC (Bld) 0.300 % 0.0-0.9 [facility] Comment on above: IG% - Immature Granu locytes (promyelocytes, myelocytes and metamyelocytes) > 1% indicates that a LEFT SHIFT is Present. LDL calc ser/plasOrdered By: Cornelio Rhodes on 02-26-2025 Cholesterol in LDL [Mass/Vol] 98 mg/dL [facility] Comment on above: Wndhyxhokn=233-961 m g/dL & Higher Wtpt=059 mg/dL or greater Laboratory - Chemistry and C hemistry - challengeOrdered By: Cornelio Rhodes on 02-26-2025 AST [Catalytic activity/Vol] 21 U/L <32 [facility] Lipid Profileon 02-26-2025 CHOL:HDL 2.89 Normal [facility] Comment on above: Order Comment: Order Date: 08/29/24 Order Info: [id number] - [facility] Order Info: [id number] - LIPID Performed By: #### L 500.4050, L100.0100, L500.4100 #### [facility] [address] [place], [address] Cholesterol [Mass/Vol] 173 mg/dL Normal <=200 [facility] Comment on above: Order Comment: Order Date: 08/29/24 Order Info: [id number] - CMP Order Info: [id number] - LIPID Result Comment: Chol esterol level, Desirable <200 mg/dL Borderline high cholesterol 200-239 mg/dL High cholesterol >=240 mg/dL Recommendations of the NCEP Adult Treatment Panel for the following risk-cutoff thresholds for the [place] population. Performed By: #### L 500.4050, L100.0100, L500.4100 #### [facility] [address] [place], [address] Cholesterol in HDL [Mass/Vol] 60 mg/dL Normal [facility] Comment on above: Order Comment: Order Date: 08/29/24 Order Info: [id number] - [facility] Order Info: [id number] - LIPID Result Comment: [place] onal Cholesterol Education Program (NCEP) guidelines: <40 mg/dL: Low HDL-cholesterol (major risk factor for CHD) >= 60 mg/dL: High HDL-cholesterol (negative risk factor for CHD) HDL-cholesterol is affected by a number of factors, e.g. smoking, exercise, hormones, sex and age. Performed By: #### L 500.4050, L100.0100, L500.4100 #### [facility] [address] [place], [address] Cholesterol in LDL [Mass/Vol] 98 mg/dL Normal [facility] Comment on above: Order Comment: Order Date: 08/29/24 Order Info: [id number] - CMP Order Info: [id number] - LIPID Result Comment: Bord sfguec=115-975 mg/dL Higher Jrqh=329 mg/dL or greater Performed By: #### L 500.4050, L100.0100, L500.4100 #### [facility] [address] [place], [address] Cholesterol in VLDL [Mass/Vol] 15 mg/dL Normal 5-40 [facility] Comment on above: Order Comment: Order Date: 08/29/24 Order Info: [id number] - CMP Order Info: [id number] - LIPID Performed By: #### L 500.4050, L100.0100, L500.4100 #### [facility] [address] [place], [address] Triglyceride [Mass/Vol] 76 mg/dL Normal [facility] Comment on above: Order Comment: Order Date: 08/29/24 Order Info: [id number] - CMP Order Info: [id number] - LIPID Result Comment: The drugs N-Acetylcysteine and Metamizole may falsely depress this assay. Normal range: <150 mg/dL Borderline High: 150-199 mg/dL High: 200-499 mg/dL Very High: >500 mg/dL Performed By: #### L 500.4050, L100.0100, L500.4100 #### [facility] [address] [place], [address] MCV (mean corpuscular volume ) determinationOrdered By: Cornelio Rhodes on 02-26-2025 MCV (RBC) [Entitic vol] 91.3 fL 81-99 [facility] Mean corpuscular hemoglobin (MCH) determinationOrdered By: Cornelio Rhodes on 02-26-2025 MCH (RBC) [Entitic mass] 30.5 pg 27.0-32.0 [facility] Mean corpuscular hemoglobin concentration (MCHC) determinationOrdered By: Cornelio Rhdoes on 02-26-2025 MCHC (RBC) [Mass/Vol] 33.4 g/dL 32-36 [facility] Mean platelet volume determi nationOrdered By: Cornelio Rhodes on 02-26-2025 Platelet mean volume (Bld) [Entitic vol] 10.6 fL 6.2-12.0 [facility] Monocyte percentageOrdered B y: Cornelio Rhodes on 02-26-2025 Monocytes/100 WBC (Bld) 7.7 % 0-10 [facility] Neutrophil percentageOrdered By: Cornelio Rhodes on 02-26-2025 Neutrophils/100 WBC (Bld) 65.3 % 47-70 [facility] Nucleated red blood cell per centageOrdered By: Cornelio Rhodes on 02-26-2025 Nucleated RBC/100 WBC (Bld) [Ratio] 0 % 0-5 [facility] Platelet countOrdered By: Horace Rhodes on 02-26-2025 Platelets (Bld) [#/Vol] 209 10*3/uL 150-450 [facility] Potassium measurement (mass/ volume)Ordered By: Cornelio Rhodes on 02-26-2025 Potassium (Unsp spec) [Mass/Vol] 3.9 mmol/L 3.3-5.1 [facility] RBC Auto (Bld) [#/Vol]Ordere d By: Cornelio Rhodes on 02-26-2025 RBC (Bld) [#/Vol] 4.13 10*6/uL Low 4.2-5.4 [facility] Screening total cholesterol/ high density lipoprotein (HDL) cholesterol ratioOrdered By: Cornelio Rhodes on 02-26-2025 Cholesterol.total/Cholest kimberly in HDL [Mass ratio] 2.89 {ratio} [facility] Serum creatinine measurement (mass/volume)Ordered By: Cornelio Rhodes on 02-26-2025 Creatinine [Mass/Vol] 0.86 mg/dL 0.70-1.20 [facility] Serum globulin measurementOr dered By: Cornelio Rhodes on 02-26-2025 Globulin (S) [Mass/Vol] 2.6 g/dL 2.2-4.2 [facility] Serum glucose measurement (m ass/volume)Ordered By: Cornelio Rhodes on 02-26-2025 Glucose [Mass/Vol] 92 mg/dL 70-99 [facility] Serum or plasma alanine grijalva otransferase (ALT) measurementOrdered By: Cornelio Rhodes on 02-26-2025 ALT [Catalytic activity/Vol] 10 U/L <35 [facility] Serum or plasma albumin frances urement (mass/volume)Ordered By: Cornelio Rhodes on 02-26-2025 Albumin [Mass/Vol] 3.7 g/dL 3.4-4.8 [facility] Serum or plasma albumin/glob ulin mass ratioOrdered By: Cornelio Rhodes on 02-26-2025 Albumin/Globulin [Mass ratio] 1.4 {ratio} 0.9-2.4 [facility] Serum or plasma alkaline trisha sphatase measurementOrdered By: Cornelio Rhodes on 02-26-2025 ALP [Catalytic activity/Vol] 64 U/L 35-104 [facility] Serum or plasma calcium frances urement (mass/volume)Ordered By: Cornelio Meagan on 02-26-2025 Calcium [Mass/Vol] 9.5 mg/dL 7.6-11.0 [facility] Serum or plasma cholesterol in HDL measurement (mass/volume)Ordered By: Cornelio Rhodes on 02-26-2025 Cholesterol in HDL [Mass/Vol] 60 mg/dL >40 [facility] Comment on above: National Cholesterol Education Program (NCEP) guidelines:<40 mg/dL: Low HDL-cholesterol (major risk factor for CHD)>= 60 mg/dL: High HDL-cholesterol (negative risk factor for CHD)HDL-cholesterol is affected by a number of factors, e.g. smoking, exercise, hormones, sex and age. Serum or plasma cholesterol measurement (mass/volume)Ordered By: Cornelio Rhodes on 02-26-2025 Cholesterol [Mass/Vol] 173 mg/dL <201 [facility] Comment on above: Cholesterol level, D esirable <200 mg/dLBorderline high cholesterol 200-239 mg/dLHigh cholesterol >=240 mg/dLRecommendations of the NCEP Adult Treatment Panel for the following risk-cutoff thresholds for the [place] population. Serum or plasma urea nitroge n measurement (mass/volume)Ordered By: Cornelio Rhodes on 02-26-2025 Urea nitrogen [Mass/Vol] 17 mg/dL 4-19 [facility] Sodium levelOrdered By: Ernestina Rhodes on 02-26-2025 Sodium [Moles/Vol] 139 mmol/L 133-145 [facility] Total proteinOrdered By: Rula Rhodes on 02-26-2025 Protein [Mass/Vol] 6.3 g/dL 5.9-8.4 [facility] Triglycerides measurementOrd ered By: Cornelio Rhodes on 02-26-2025 Triglyceride [Mass/Vol] 76 mg/dL <199 [facility] Comment on above: The drugs N-Acetylcy steine and Metamizole may falsely depress this assay. Normal range: <150 mg/dLBorderline High: 150-199 mg/dLHigh: 200-499 mg/dLVery High: >500 mg/dL White blood cell (WBC) count Ordered By: Cornelio Rhodes on 02-26-2025 WBC (Bld) [#/Vol] 7.6 10*3/uL 4.4-11.0 [facility] Urgent Care Visit Reporton 0 02-02-2025 Urgent Care Visit Report [facility] [address] [place] [address] OFFICE VISIT Date of Service: 02/02/25 MR#: [id number] Acct: [id number] Name: KINA SIMPSON Rep #: [id number] : 1955 Provider: FERNANDO santamaria Age/Sex: 69/F Location: [facility] Status: Signed Intake Vital Signs 07/12/23 12:17 02/02/25 09:33 Height 5 ft 5 ft Weight: 139 lb 6 oz BMI 27.2 BP 120/80 Position Sitting Respiration 16 Pulse 66 Temp 98.5 F Temp Source Oral Pulse Oximetry (%) 95 Oxygen Delivery Method room air Intake Visit Reasons: R ARM PUNCTURE WOUND Accompanied by: Self Allergies No Known Allergies Allergy (Verified 02/02/25 09:39) Medications ???Medication ???Instructions ???Recorded ???Confirmed ???Type losartan 50 mg-hydrochlorothiaz dangelo tab PO 07/12/23 02/02/25 History 12.5 mg tablet cephalexin 500 mg tablet 500 mg PO TID 10 days #30 tabs 02/02/25 Rx semaglutide 1 mg/0.2 mL mg subcut 02/02/25 02/02/25 Histor y subcutaneous syringe Have you fallen in the past year?: No Nurse's Note: Patient was trimming a lilac giles on Monday and a piece of wood got into her inner arm but the elbow. Patient states she got the bigger piece out on Monday and then yesterday she got another piece out it was small. Patient had some old Amoxicillin 500mg at home and she took 2 on Monday and one yesterday. Patient did go get a TDAP injection yesterday. Patient was told by that pharmacist do stop the Amoxicillin, cause that might be a AB that wouldn't help her. Patient states her arm is warm to touch and its red and swollen. [facility] Social History Smoking Status: Never smoker HPI HPI Details: KINA SIMPSON, is a 69 F who presents to the office today. The patient is a 69-year-old female presenting with a puncture wound on the right arm. She removed wood fragments over two days and took amoxicillin due to a prior hip replacement. She received a Tdap vaccination and reports the arm is warm, red, and swollen without fever. Her medications include losartan, hydrochlorothiazide , and semaglutide. She is a never smoker with no significant medical, surgical, or family history. - General: Denies fever - Musculoskeletal: Reports right arm warmth, redness, and swelling - Vital Signs: Blood pressure 120/80 mmHg, heart rate 66 bpm, respiratory rate 16 breaths per minute, temperature 98.5???F, oxygen saturation 95% on room air - Right Arm: Warm to touch, red, swollen, good pulse, no limited range of motion, no tendons or ligaments affected - Take oral antibiotics as prescribed for 10 days. - Apply topical antibiotics to the affected area. - Use hydrocortisone cream and ice to reduce swelling. - Monitor for any signs of infection and report if symptoms worsen. - Be aware of potential digestive issues from antibiotics and stop if severe diarrhea occurs. Attestation: Documentation on this patient encounter was supported using ambient scribe technology/ voice AI technology. The patient consented to recording for the purpose of documenting the encounter. Provider reviewed content of the generated note prior to signature. ROS Const Constitutional: No body ache, chills, fatigue, fever(s) or headache(s) ENT ENT: No headache(s) Skin Skin: Positive for redness Neuro Neurology: No headache(s) Endo Endocrine: No fatigue Exam Const General: cooperative, healthy appearing, comfortable and no acute distress Orientation: alert and awake Skin General: other Other: right elbow area, redness, tender to touch, rull ROM and pulse 2+ both radial and right brachial. Coding Level of Care Code Off vis,est,level 3 Diagnoses Puncture wound T14.8XXA Assessment and Plan Assessment and Plan (1) Puncture wound: Status: Acute Plan: She states this is improved, which is encouraging. Will add antibiotic give hip surgery previous and added infection protection. Encouraged to get plenty of rest, drink lots of clear liquids, and use Tylenol or Ibuprofen (unless contraindicated) for fever and comfort. Patient also educated on other symptomatic management techniques. To be seen in 7-10 days if no improvement; sooner if worsening of symptoms.??? Patient advised of potential red flags and when appropriate to report to the ED.??? Patient verbalized understanding and agreement with all the above. - Administer oral antibiotics for 10 days. - Apply topical antibiotics for protection. - Use hydrocortisone cream and ice for swelling and inflammation. Medications: New cephalexin 500 mg PO TID 10 days 30 tabs 0RF Clinical Quality Measures Falls Risk Screening/Assistive Devices Have you fallen in the past year?: No 02/02/25 1014 Date Dez Oliver (more content not included)... Normal [facility] Absolute lymphocyte countOrd ered By: Cornelio Rhodes on 02-20-2023 Lymphocytes Auto (Unsp spec) [#/Vol] 1.39 10*3/uL 0.83-4.51 [facility] Basophil percentageOrdered B y: Cornelio Vincentke on 02-20-2023 Basophils/100 WBC (Bld) 0.7 % 0-1 [facility] Bilirubin [Mass/Vol] 0.60 mg/dL 0.20-1.00 [facility] Comment on above: For patients on eltr ombopag therapy, use of Dimension [place] TBIL is not recommended. Chloride [Moles/Vol] 105 mmol/L 98-107 [facility] Cholesterol [Mass/Vol] 192 mg/dL <200 [facility] Comment on above: <200 mg/dL Desirable 200-240 mg/dL Borderline >240 mg/dL High Risk Eosinophils/100 WBC (Bld) 1.6 % 0-5 [facility] Glucose [Mass/Vol] 84 mg/dL 74-106 [facility] Neutrophils (Bld) [#/Vol] 4.0 10*3/uL 2.0-7.7 [facility] Neutrophils/100 WBC (Bld) 65.3 % 47-70 [facility] Potassium [Moles/Vol] 3.7 mmol/L 3.5-5.1 [facility] Protein [Mass/Vol] 6.9 g/dL 6.4-8.2 [facility] Sodium [Moles/Vol] 138 mmol/L 136-145 [facility] Triglyceride [Mass/Vol] 52 mg/dL <199 [facility] Comment on above: The drugs N-Acetylcy steine and Metamizole may falsely depress this assay.Serum Triglycerides Reference Interval Normal <150 mg/dL Borderline high 150 - 199 mg/dL High 200 - 499 mg/dL Very High > or = 500 mg/dL WBC (Bld) [#/Vol] 6.1 10*3/uL 4.4-11.0 [facility] Blood erythrocytes count (nu mber/volume)Ordered By: Cornelio Rhodes on 02-20-2023 RBC (Bld) [#/Vol] 4.37 10*6/uL 4.2-5.4 [facility] Blood hemoglobin measurement (mass/volume)Ordered By: Cornelio Rhodes on 02-20-2023 Hemoglobin (Bld) [Mass/Vol] 13.2 g/dL 12.0-15.0 [facility] Blood lymphocytes/100 leukoc ytesOrdered By: Cornelio Rhodes on 02-20-2023 Lymphocytes/100 WBC (Bld) 22.7 % 19-41 [facility] Blood monocytes/100 leukocyt esOrdered By: Cornelio Rhodes on 02-20-2023 Monocytes/100 WBC (Bld) 9.2 % 0-10 [facility] Blood platelet mean volumeOr dered By: Cornelio Rhodes on 02-20-2023 Platelet mean volume (Bld) [Entitic vol] 10.4 fL 6.2-12.0 [facility] Determination of erythrocyte mean corpuscular volume (MCV)Ordered By: Cornelio Rhodes on 02-20-2023 MCV (RBC) [Entitic vol] 92.0 fL 81-99 [facility] Hematocrit Auto (Bld) [Volum e fraction]Ordered By: Cornelio Meagan on 02-20-2023 Hematocrit (Bld) [Volume fraction] 40.2 % 37-47 [facility] Laboratory - Chemistry and C hemistry - challengeOrdered By: [facility] on 02-20-2023 ALP [Catalytic activity/Vol] 58 U/L 45-117 [facility] ALT [Catalytic activity/Vol] 21 U/L 13-56 [facility] CO2 [Moles/Vol] 30.0 mmol/L 21.0-32.0 [facility] Globulin (S) [Mass/Vol] 3.4 g/dL 2.2-4.2 [facility] Urea nitrogen/Creatinine [Mass ratio] 29.7 mg/mg 10-20 [facility] Laboratory - Hematology and Cell countsOrdered By: [facility] on 02-[facility]-2023 Erythrocyte distribution width (RBC) [Entitic vol] 42.0 fL 35.1-43.9 [facility] Erythrocyte distribution width (RBC) [Ratio] 12.4 % 11.6-14.6 [facility] Immature granulocytes/100 WBC (Bld) 0.500 % 0.0-0.9 [facility] Comment on above: IG% - Immature Granu locytes (promyelocytes, myelocytes and metamyelocytes) > 1% indicates that a LEFT SHIFT is Present. MCH (RBC) [Entitic mass] 30.2 pg 27.0-32.0 [facility] Nucleated RBC/100 WBC (Bld) [Ratio] 0 % 0-5 [facility] MCHC Auto (RBC) [Mass/Vol]Or dered By: [facility] on 02-20-2023 MCHC (RBC) [Mass/Vol] 32.8 g/dL 32-36 [facility] No Panel InformationOrdered By: [facility] Me[facility] on 02-20-2023 Estimated GFR (MDRD) Amer 86 mL/min >60 [facility] Comment on above: GFR Calc Estimated GFR (MDRD) Non-Af Amer 71 mL/min >60 [facility] Comment on above: Non- GFR Calc Platelets bldOrdered By: Rula Rhodes on 02-20-2023 Platelets (Bld) [#/Vol] 212 10*3/uL 150-450 [facility] Serum or plasma albumin frances urement (mass/volume)Ordered By: Cornelio Rhodes on 02-20-2023 Albumin [Mass/Vol] 3.5 g/dL 3.2-5.0 [facility] Serum or plasma albumin/glob ulin mass ratioOrdered By: Cornelio Rhodes on 02-20-2023 Albumin/Globulin [Mass ratio] 1.0 {ratio} 0.9-2.4 [facility] Serum or plasma calcium frances urement (mass/volume)Ordered By: Cornelio Rhodes on 02-20-2023 Calcium [Mass/Vol] 9.5 mg/dL 8.5-10.1 [facility] Serum or plasma cholesterol in HDL measurement (mass/volume)Ordered By: Cornelio Rhodes on 02-20-2023 Cholesterol in HDL [Mass/Vol] 75 mg/dL >40 [facility] Comment on above: The drugs N-Acetylcy steine and Metamizole may falsely depress this assay. Reference Range HDL <40 mg/dL Low HDL Cholesterol HDL >or= 60 mg/dL High HDL Cholesterol Serum or plasma cholesterol in VLDL measurement (mass/volume)Ordered By: Cornelio Rhodes on 02-20-2023 Cholesterol in VLDL [Mass/Vol] 10 mg/dL 5-40 [facility] Serum or plasma creatinine m easurement (mass/volume)Ordered By: Cornelio Rhodes on 02-20-2023 Creatinine [Mass/Vol] 0.84 mg/dL 0.55-1.02 [facility] Comment on above: The validity of the calculated GFR & GFRAA in patients over 70 years has not been determined. Clinical correlation is essential. Serum or plasma low density lipoprotein (LDL) cholesterol measurement (mass/volume)Ordered By: Cornelio Rhodes on 02-20-2023 Cholesterol in LDL [Mass/Vol] 107 mg/dL 0-130 [facility] Serum or plasma urea nitroge n measurement (mass/volume)Ordered By: Cornelio Rhodes on 02-20-2023 Urea nitrogen [Mass/Vol] 25 mg/dL 7-18 [facility] Thin prep Papanicolaou smear with manual screeningOrdered By: Cornelio Rhodes on 02-20-2023 Thin prep Papanicolaou smear with manual screening 25 U/L 15-37 [facility] Thin prep Papanicolaou smear with manual screening 3 5-15 [facility] Vital Signs Date Time Vital Sign Value Performing Clinician Faci lity 02-02-2025 09:33-0400 Body height 152.4 cm Cornelio Rhodes MD Work Phone: [facility] 02-02-2025 09:33-0400 Body mass index (BMI) [Ratio] 27.2 kg/m2 Cornelio Rhodes MD Work Phone: [facility] 02-02-2025 09:33-0400 Body temperature 98.5 [degF] Cornelio Rhodes MD Work Phone: [facility] 02-02-2025 09:33-0400 Body weight 63.21 kg Cornelio Rhodes MD Work Phone: [facility] 02-02-2025 09:33-0400 Diastolic blood pressure 80 mm[Hg] Cornelio Rhodes MD Work Phone: [facility] 02-02-2025 09:33-0400 Heart rate 66 /min Cornelio Rhodes MD Work Phone: [facility] 02-02-2025 09:33-0400 Respiratory rate 16 /min Cornelio Rhodes MD Work Phone: [facility] 02-02-2025 09:33-0400 SaO2% (BldA) [Mass fraction] 95 % Cornelio Rhodes MD Work Phone: [facility] 02-02-2025 09:33-0400 Systolic blood pressure 120 mm[Hg] Cornelio Rhodes MD Work Phone: [facility] Encounters Encounter Date Encounter Type Care Provider Facility Start: 04-21-2025 ambulatory Cornelio Rhodes Facility:[facility] Start: 02-26-2025 End: 02-26-2025 ambulatory Cornelio Rhodes MD Work Phone: -[facility]atory [facility] Start: 02-26-2025 End: 02-26-[address] Cornelio Rhodes MD -Laboratory [facility] Start: 02-26-2025 End: 02-26-2025 ambulatory Cornelio Rhodes Facility:[facility] Start: 02-24-2025 ambulatory Cornelio Rhodes Facility:[facility] Start: 02-02-2025 End: 02-02-2025 Patient encounter procedure Dez Hurtado SHEARING MACHINE FEEDER-[facility] -[facility] Work Phone: Start: 02-02-2025 End: 02-02-2025 ambulatory Cornelio Rhodes MD Work Phone: [facility] Work Phone: Start: 02-20-2023 End: 02-20-2023 ambulatory [facility] Work Phone: Start: 02-20-2023 End: 02-20-2023 Patient encounter procedure [facility] Payers Date Payer Category Payer Self-pay [id number] 2020 Medicare [id number] 2020 Unknown [id number] 2015 [id number] 2015 Unknown [id number] Unknown [id number] [id number] Unknown [id number] Unknown [id number] Unknown [id number] [id number] Social History Date Type Detail Facility Start: 05-09-[address] [facility] Unknown if ever smoked [facility] Start: 1955 Sex Assigned At Female [facility] Start: 07-12-[address] [facility] Never smoked tobacco (finding) [facility] Evaluation note 02-02-2025 Note Date & Type Note Facility 02-02-2025 Evaluation note Diagnosis Onset Date Resolution Puncture wound acute February 02, 2025 8:45am [facility] Work Phone: Evaluation note Note Date & Type Note Facility Evaluation note No assessment information availa ble [facility] Work Phone: Evaluation note Note Date & Type Note Facility Evaluation note Diagnosis Onset Date Resolution Puncture wound acute February 02, 2025 8:45am [facility] Work Phone: Reason for referral (narrative) Note Date & Type Note Facility Reason for referral (narrative) No reason for referral information available [facility] Work Phone: Chief Complaint and Reason for Visit Chief Complaint Admit Date R ARM PUNCTURE WOUND February 02, 2025 8:4 5am Reason for Visit Admit Date Puncture wound February 02, 2025 8:45 am Summary Purpose Family History No Family History Records Found Advance Directives No Advanced Directives Records Found Additional Source Comments Care Teams (unrecognized sec tion and content) Team Status: Active Member Role Status Dates Dr. John Garcia MD Family Provider Active Dr. Vijaya Walker MD Primary Care Provider Active Team Status: Inactive Member Role Status Dates Dr. Vijaya Walker MD Primary Care Provider Active Cornelio Rhodes MD Attending Provider Active Team Status: Active Member Role Status Dates Dr. John Garcia MD Family Provider Active Cornelio Rhodes MD Primary Care Provider Active Team Status: Inactive Member Role Status Dates Cornelio Rhodes MD Primary Care Provider Active St art: February 02, 2025 End: February 02, 2025 Cornelio Rhodes MD Referring Provider Active Start : February 02, 2025 End: February 02, 2025 Dez Hurtado SHEARING MACHINE FEEDER, SHEARING [employer]ACHINE [employer]EDER-C Attending Provider Active S tart: February 02, 2025 End: February 02, 2025 Team Status: Active Member Role/Relationship Status Dates Dr. John Garcia MD Family Provider Active Cornelio Rhodes MD Primary Care Provider Active Team Status: Inactive Member Role/Relationship Status Dates Cornelio Rhodes MD Primary Care Provider Active St art: February 02, 2025 End: February 02, 2025 Cornelio Rhodes MD Referring Provider Active Start : February 02, 2025 End: February 02, 2025 Dez Hurtado SHEARING MACHINE FEEDER, SHEARING MACHINE FEEDER-C Attending Provider Active S tart: February 02, 2025 End: February 02, 2025 Team Status: Inactive Member Role/Relationship Status Dates Cornelio Rhodes MD Primary Care Provider Active St art: February 26, 2025 End: February 26, 2025 Cornelio Rhodes MD Attending Provider Active Start : February 26, 2025 End: February 26, 2025 Cornelio Rhodes MD Referring Provider Active Start : February 26, 2025 End: February 26, 2025 Goals (unrecognized section and content) Goals may be documented in a n alternate sectionGoals may be documented in an alternate sectionGoals may be documented in an alternate section INFORMATION SOURCE (unrecogn ized section and content) DATE CREATED AUTHOR 04/18/2025 [facility] FOR RECORDS PERTAINING TO PATIENTS WHO ARE OR HAVE BEEN ENROLLED IN A CHEMICAL DEPENDENCY/SUBSTANCEABUSE PROGRAM, SOME INFORMATION MAY BE OMITTED. This clinical summary was aggregated from multiple sources. Caution should be exercised in using it in the provision of clinical care. This summary normalizes information from multiple sources, and as a consequence, information in this document may materially change the coding, format and clinical context of patient data. In addition, data may be omitted in some cases. CLINICAL DECISIONS SHOULD BE BASED ON THE PRIMARY CLINICAL RECORDS. [employer] provides no warranty or guarantee of the accuracy or completeness of information in this document.
== END | disposition home or self-care (01) ==
PROVIDERS: PCP Family Medicine; Referring Provider Family Medicine; Visit Provider Family Medicine
DX: Z12.31 Encounter for screening mammogram for malignant neoplasm of breast (principal)
CPT/HCPCS: 77063; 77067